=== PATIENT | female | born 1960 | race Caucasian/White ===

== ENCOUNTER 2022-07-04 08:34 | Outpatient (CLI) | payer BC, SELFPAY ==
--- OUTSIDE RECORDS SUMMARY | 2022-07-04 08:36 | XMS_ITS ---
:1960 Author Care Team Providers Name Role Phone Halima Mata Primary Care Provider Unavailable Allergies None recorded. Medications Name Status Start Date Stop Date ? ? alendronate 70 mg tablet Active ? Not gregory ilable bupropion HCl XL 300 mg 24 hr tablet, extended release Active ? Not available TAKE 1 TABLET BY MOUTH ONCE DAILY diclofenac sodium 75 mg tablet,delayed release Active ? Not available epinephrine 0.3 mg/0.3 mL injection, auto-injector Active ? Not available INJECT CONTENTS OF 1 PEN NEEDED FOR ALLERGIC REACTION INTRAM USCULARLY fluoxetine 20 mg capsule Active ? Not gregory ilable gabapentin 300 mg capsule Active ? Not av ailable glipizide ER 5 mg tablet, extended release 24 hr Active ? Not available lisinopril 10 mg tablet Active ? Not avai lable TAKE 1 TABLET BY MOUTH ONCE DAILY oxycodone-acetaminophen 5 mg-325 mg tablet Active ? Not available TAKE 0.5 TO 1 TABLET BY MOUTH EVERY 4 T O 6 HOURS NEEDED. DO NOT EXCEED 6 TABLET IN 24 HOURS sulfamethoxazole 800 mg-trimethoprim 160 mg tablet Active ? Not available TAKE 1 TABLET BY MOUTH TWICE DAILY FOR 7 DAYS Problems None recorded. Procedures None recorded. Results Lab Results None recorded. Past Encounters 02/11/2022 Cosmetic Surgery Halima Mata MD: [address], [facility], [place] [address], Ph. Social History None recorded. Vaccine List None recorded. Plan of Care Reminders Provider Appointments None recorded. ? ? Lab None recorded. ? ? Referral None recorded. ? ? Procedures None recorded. ? ? Surgeries None recorded. ? ? Imaging None recorded. ? ? Vitals None recorded.
[2022-07-04 13:16] LABS: Chloride* 102 mmol/L (96-114); Potassium* 4.6 mmol/L (3.6-5.1); Sodium* 136 mmol/L (135-149)
[2022-07-04 13:18] LABS: Creatinine* 0.9 mg/dL (0.5-1.5); Estimated Glomerular Filt Rate 72 ml/min
[2022-07-04 13:19] LABS: Blood Urea Nitrogen* 16 mg/dL (7-30); Calcium* 9.5 mg/dL (8.4-10.6); Carbon Dioxide* 24 mmol/L (20-32); Glucose* 250 mg/dL (60-115)
== END 2022-07-04 08:35 | disposition home or self-care (01) ==
LOC: FBOREF 08:34
PROVIDERS: PCP Family Medicine; Visit Provider Family Medicine
DX: I10 Essential (primary) hypertension (principal)
CPT/HCPCS: 80048

== ENCOUNTER 2023-01-02 08:53 | Outpatient (CLI) | payer BC, SELFPAY | END 2023-01-02 08:54 | disposition home or self-care (01) | LOC: NFLDREF 01-03 01:34 | PROVIDERS: PCP Family Medicine; Referring Provider Family Medicine; Visit Provider Family Medicine | DX: Z00.00 Encounter for general adult medical examination without abnormal findings (principal); E11.9 Type 2 diabetes mellitus without complications; I10 Essential (primary) hypertension; F41.9 Anxiety disorder, unspecified; Z13.6 Encounter for screening for cardiovascular disorders | CPT/HCPCS: 80048; 80061 ==

== ENCOUNTER 2023-04-14 08:48 | Outpatient (CLI) | payer BC, SELFPAY ==
--- NOTE | 2023-04-14 09:15 | CRLHL7_ITS ---
For Patients: As a result of the Century Cures Act, medical imaging exams and procedure reports are released immediately into your electronic medical record. You may view this report before your referring provider. If you have questions, please contact your health care provider. BILATERAL SCREENING MAMMOGRAM WITH COMPUTER-AIDED DETECTION AND TOMOSYNTHESIS TECHNIQUE: CC and MLO views were obtained. These mammographic images have been obtained using full-field digital technique. These mammographic images were interpreted with the benefit of computer-aided detection. Breast Tomosynthesis was used in this interpretation. COMPARISON FILM: 02/21/22, 11/24/20, 08/10/19. FINDINGS: There are scattered areas of fibroglandular density IMPRESSION: There is no radiographic evidence for malignancy. ASSESSMENT: BI-RADS Category 2: Benign RECOMMENDATION: Routine screening mammogram in 1 year. A lay language report of this examination will be provided to the patient. John Mendez M.D. Diagnostic Radiologist [email or web address] LEDA/Dictated by: John Mendez MD @ 04/14/2023 12:55:00 PM (Electronically Signed)
== END 2023-04-14 08:49 | disposition home or self-care (01) ==
LOC: MAMMO 08:49
PROVIDERS: PCP Family Medicine; Visit Provider Family Medicine
DX: Z12.31 Encounter for screening mammogram for malignant neoplasm of breast (principal)
CPT/HCPCS: 77063; 77067

== ENCOUNTER 2024-01-15 14:59 | Outpatient (CLI) | payer MEDICAID, SELFPAY ==
--- OUTSIDE RECORDS SUMMARY | 2024-02-05 11:44 | XMS_ITS | Data Portability ---
Author Name Unknown Address [address] [place] [address] Phone [phone] Organization [facility], Main Office Address [address] [place] [address] Assessment Encounter Date Assessment Date Assessment LastModified by Organization Details LastModified Time 02/11/2022 02/11/2022 1. Baldwin angiomas. Discussed etiology discussed scarring hyfrecation 2. Sebaceous gland hyperplasia. Anesthetized over 25 lesions light hyfrecation setting 1.6 maybe 2 passes maximum. Wound care instructions given $100 charge. Follow-up as needed [email or web address] Not available 02/11/2022 10:29:25 10/14/2022 10/14/2022 1. Sebaceous gland hyperplasia treated more than 30 lesions with light hyfrecation some with anesthesia. $100 charge [email or web address] Not available 10/14/2022 23:28:36 Plan of Treatment Reminders Order Date Submit Date Provider Last Modified By Organization Details Last Modified Time Details Appointments None record ed. Lab None record ed. Referral None record ed. Procedures None record ed. Surgeries None record ed. Imaging None record ed. Medication Orders None record ed. Patient TargetsNo targets recorded. Patient InstructionsNo instructions recorded. Reason for Referral None Reported. Medical Equipment None Reported. Medications Name Sig Start Date Stop Date Status Note LastModified by Organization Details LastModified Time fluoxetine 40 mg capsule TAKE 1 CAPSULE BY MOUTH TWICE DAILY active Not Available Not Available No t Available alendronate 70 mg tablet TAKE 1 TABLET BY MOUTH ONCE A WEEK active Not Available Not Available No t Available glipizide ER 5 mg tablet, extended release 24 hr TAKE 1 TABLET BY MOUTH ONCE DAILY active Not Available Not Available No t Available sulfamethoxa zole 800 mg-trimethop rim 160 mg tablet TAKE 1 TABLET BY MOUTH EVERY 12 HOURS FOR 3 DAYS active Not Available Not Available N ot Available oxycodone-ac etaminophen 5 mg-325 mg tablet TAKE 0.5 TO 1 TABLET BY MOUTH EVERY 4 TO 6 HOURS NEEDED. DO NOT EXCEED 6 TABLET IN 24 HOURS active Not Available Not Available No t Available lisinopril 10 mg tablet TAKE 1 TABLET BY MOUTH ONCE DAILY active Not Available Not Available No t Available gabapentin 300 mg capsule TAKE 1 CAPSULE BY MOUTH IN THE MORNING, 2 CAPSULES AT NOON AND 1 CAPSULE IN THE EVENING NEEDED FOR PAIN. active Not Available Not Available No t Available diclofenac sodium 75 mg tablet,delay ed release TAKE 1 TABLET BY MOUTH TWICE DAILY active Not Available Not Available No t Available epinephrine 0.3 mg/0.3 mL injection, auto-injecto r INJECT CONTENTS OF 1 PEN INTRAMUSCUL JUAN M NEEDED FOR ALLERGIC REACTION (MAY REPEAT ONCE) active Not Available Not Available No t Available fluoxetine 20 mg capsule TAKE 1 CAPSULE BY MOUTH ONCE DAILY active Not Available Not Available No t Available bupropion HCl XL 300 mg 24 hr tablet, extended release TAKE 1 TABLET BY MOUTH ONCE DAILY active Not Available Not Available No t Available Vitals None Recorded Social History None recorded. Functional Status None recorded. Mental Status None recorded. Family History Nothing Reported. Medical History No medical history recorded. Gynecological HistoryNo gynecological history recorded. Obstetrics History GPAL:G 0 P 0 0 0 0 Past Encounters Encounter ID Performer Location Encounter Start Date Encounter Closed Date Diagnosis/Indication Diagnosis SNOMED-CT Code [id number] Halima Mata MD Main Office [address] [address] 02/11/2022 09:06:40 02/11/2022 22:40:45 Cosmetic surgery [id number] Halima Mata MD Main Office [address] [address] 10/14/2022 15:53:54 10/19/2022 18:20:01 Cosmetic surgery [id number] Health Concerns Section Related Observation LastModified by Organization Detai ls LastModified Time None Recorded Concern Status LastModified by Organization Details LastModified Time None Recorded Advance Directives Directive None Recorded Payers Encounter Date Sequence Insurance Name Policy Number Policy Forte Covered Member ID Forte Member ID Guarantor Name 10/14/2022 1 *SELF PAY* Shyann gema Osvaldo Scottestad 02/11/2022 1 *SELF PAY* Shyann Riley Rama Notes Date Note Type Note Provider Name and Address Organization Details Recorded Time 02/11/2022 text/html HPI Notes: 61-year-old known to me from [place] presents for sebaceous hyperplasia and baldwin angiomas on the face. Treating these with cosmetic treatment hyfrecation. Has not had this done before Past medical history, family history, social history unchanged in the interim. Halima Mata MD [address],[facility] [address], [place], [address], [facility] 02/11/2022 22:40:39 10/14/2022 text/html HPI Notes: Returns for more sebaceous gland hyperplasia cautery. She had no side effects previously. Halima Mata MD [address] [place], [address], [facility] 10/19/2022 18:19:47 OBGyn Episode No OBEpisode recorded.
== END 2024-01-15 15:00 | disposition home or self-care (01) ==
LOC: NFLDREF 02-05 11:41
PROVIDERS: PCP Family Medicine; Referring Provider Family Medicine; Visit Provider Family Medicine
DX: E11.9 Type 2 diabetes mellitus without complications (principal); I10 Essential (primary) hypertension; Z13.220 Encounter for screening for lipoid disorders
CPT/HCPCS: 80048; 80061; 82043; 82570

== ENCOUNTER 2024-03-10 13:04 | Outpatient (CLI) | payer MEDICARE, SELFPAY ==
--- OUTSIDE RECORDS SUMMARY | 2024-03-10 13:10 | XMS_ITS | Data Portability ---
Author Organization [place] [facility], Main Office Address [address] [place] [address] Assessment Encounter Date Assessment Date Assessment LastModified [...] Encounter Closed Date Diagnosis/Indication Diagnosis SNOMED-CT Code [id number] Halima Mata MD Main Office [address] [facility] [place] [address] 02/11/2022 09:06:40 02/11/2022 22:40:45 Cosmetic surgery [id number] Halima Mata MD Main Office [address],[facility] [place] [place] [address] 10/14/2022 15:53:54 10/19/2022 18:20:01 Cosmetic surgery [id number] Health Concerns Section Related Observation LastModified by Organization Detai ls LastModified Time None Recorded Concern Status LastModified by Organization Details LastModified Time None Recorded Advance Directives Directive None Recorded Payers Encounter Date Sequence Insurance Name Policy Number Policy Forte Covered Member ID Forte Member ID Guarantor Name 10/14/2022 1 *SELF PAY* Shyann Ontiveros 02/11/2022 1 *SELF PAY* Shyann Riley Smesthang Notes Date Note Type Note Provider Name and Address Organization Details Recorded Time 02/11/2022 text/html HPI Notes: 61-year-old known to me from [place] presents for sebaceous hyperplasia and baldwin angiomas on the face. Treating these with cosmetic treatment hyfrecation. Has not had this done before Past medical history, family history, social history unchanged in the interim. Halima Mata MD [address],[facility] [place], [address], [facility] 02/11/2022 22:40:39 10/14/2022 text/html HPI Notes: Returns for more sebaceous gland hyperplasia cautery. She had no side effects previously. Halima Mata MD [address],[place], [address], [facility] 10/19/2022 18:19:47 OBGyn Episode No OBEpisode recorded.
--- NOTE | 2024-03-10 13:30 | CRLHL7_ITS ---
For Patients: As a result of the Century Cures Act, medical imaging exams and procedure reports are released immediately into your electronic medical record. You may view this report before your referring provider. If you have questions, please contact your health care provider. DXA BONE MINERAL DENSITY STUDY Reason for exam: Two year follow-up on Fosamax. Current height (in): 61. Weight (lb): 150. Menopause age: 30. Ethnicity: White. 1. Have you had a previous hip or vertebral fracture? No. 2. Have you had any fractures during your adult life which did not result from significant trauma (e.g., auto accident)? Yes. 3. Did either of your parents have a hip fracture? No. 4. Do you smoke? No. 5. Have you ever taken Glucocorticoids? No. 6. Do you have rheumatoid arthritis? No. 7. Do you have secondary osteoporosis? Yes. 8. Do you drink 3 or more alcoholic drinks per day? No. 9. Are you being treated for osteoporosis? Yes. 10. Have you ever taken any of the following medications: Actonel, Evista, Fosamax, Miacalcin, Reclast, Boniva, Forteo, HRT (i.e. estrogen/hormone therapy), Protelos, Prolia, Vitamin D, Calcium, other ??? please specify. ANSWER: Fosamax and Calcium. 11. Do you have any of the following medical conditions: Anorexia or bulimia, asthma or emphysema, end stage renal disease, hyperparathyroidism, any seizure disorders, cancer, inflammatory bowel diseases, hysterectomy, other ??? please specify. ANSWER: Yes, hysterectomy. 12. What was your maximum height (inches)? 63. 13. Do you perform weight bearing exercise regularly? No. 14. Do you regularly consume dairy products? Yes. 15. Do you drink caffeinated beverages? Yes. 16. At what age did your period start? 10. 17. Are you premenopausal? No. 18. How many full term pregnancies have you had? 0. 19. Have you ever missed your period for more than 6 months in a row (not including or menopause)? No. TECHNIQUE: Bone mineral density study was performed using the [employer]. FINDINGS: The results of the study expressed as bone mineral density (BMD) are as follows: Lumbar spine L1 to L3: BMD: 0.955 g/cm2. T-score: -0.6. Z-score: 1.2. Neck Left: BMD: 0.622 g/cm2. T-score: -2.0. Z-score: -0.5. Right: BMD: 0.616 g/cm2. T-score: -2.1. Z-score: -0.6. Total Left: BMD: 0.865 g/cm2. T-score: -0.6. Z-score: 0.6. Right: BMD: 0.829 g/cm2. T-score: -0.9. Z-score: 0.3. IMPRESSION: Osteopenia. *Comparison exams done prior to 02/2020 were performed on different unit, [email or web address]. COMPARISON: Compared with scan of 02/28/2022, the bone mineral density has increased by 0.7 percent at the spine and decreased by 7.0 percent at the hip. Compared with scan of 08/09/2019, the bone mineral density has increased by 3.7 percent at the spine and increased by 15.5 percent at the hip. John Mendez M.D. Diagnostic Radiologist [email or web address] SP/Dictated by: John Mendez MD @ 03/11/2024 10:53:00 AM (Electronically Signed)
== END 2024-03-10 13:05 | disposition home or self-care (01) ==
PROVIDERS: PCP Family Medicine; Visit Provider Family Medicine
DX: M81.0 Age-related osteoporosis without current pathological fracture (principal); M85.89 Other specified disorders of bone density and structure, multiple sites
CPT/HCPCS: 77080

== ENCOUNTER 2024-04-28 13:39 | Outpatient (CLI) | payer MEDICARE, SELFPAY ==
--- OUTSIDE RECORDS SUMMARY | 2024-04-28 13:42 | XMS_ITS | Data Portability ---
Author Organization [place] [facility], Main Office Address [address] [place] [address] Assessment Encounter Date Assessment Date Assessment LastModified [...] Encounter Closed Date Diagnosis/Indication Diagnosis SNOMED-CT Code [id number] Halima Mata MD Main Office [address] [facility] [place] [address] 02/11/2022 09:06:40 02/11/2022 22:40:45 Cosmetic surgery [id number] Halima Mata MD Main Office [address],[facility] [place] [address] 10/14/2022 15:53:54 10/19/2022 18:20:01 Cosmetic surgery [id number] Health Concerns Section Related Observation LastModified by Organization Detai ls LastModified Time None Recorded Concern Status LastModified by Organization Details LastModified Time None Recorded Advance Directives Directive None Recorded Payers Encounter Date Sequence Insurance Name Policy Number Policy Forte Covered Member ID Forte Member ID Guarantor Name 02/11/2022 1 *SELF PAY* Shyann Scottesthang 10/14/2022 1 *SELF PAY* Shyann Riley Smesthang Notes Date Note Type Note Provider Name and Address Organization Details Recorded Time 02/11/2022 text/html HPI Notes: 61-year-old known to me from [place] presents for sebaceous hyperplasia and baldwin angiomas on the face. Treating these with cosmetic treatment hyfrecation. Has not had this done before Past medical history, family history, social history unchanged in the interim. Halima Mata MD [address],[facility] [place], [address], [facility] 02/11/2022 22:40:39 10/14/2022 text/html HPI Notes: Returns for more sebaceous gland hyperplasia cautery. She had no side effects previously. Halima Mata MD [address], [address], [facility] 10/19/2022 18:19:47 OBGyn Episode No OBEpisode recorded.
--- NOTE | 2024-04-28 14:00 | CRLHL7_ITS ---
For Patients: As a result of the Century Cures Act, medical imaging exams and procedure reports are released immediately into your electronic medical record. You may view this report before your referring provider. If you have questions, please contact your health care provider. BILATERAL SCREENING MAMMOGRAM WITH COMPUTER-AIDED DETECTION AND TOMOSYNTHESIS TECHNIQUE: CC and MLO views were obtained. These mammographic images have been obtained using full-field digital technique. These mammographic images were interpreted with the benefit of computer-aided detection. Breast Tomosynthesis was used in this interpretation. COMPARISON FILM: 04/14/23, 02/21/22, 11/24/20. FINDINGS: There are scattered areas of fibroglandular density IMPRESSION: There is no radiographic evidence for malignancy. ASSESSMENT: BI-RADS Category 2: Benign RECOMMENDATION: Routine screening mammogram in 1 year. A lay language report of this examination will be provided to the patient. John Mendez M.D. Diagnostic Radiologist [email or web address] LEDA/Dictated by: John Mendez MD @ 04/29/2024 8:31:00 AM (Electronically Signed)
== END 2024-04-28 13:40 | disposition home or self-care (01) ==
PROVIDERS: PCP Family Medicine; Visit Provider Family Medicine
DX: Z12.31 Encounter for screening mammogram for malignant neoplasm of breast (principal)
CPT/HCPCS: 77063; 77067

== ENCOUNTER 2025-06-27 08:42 | Outpatient (CLI) | payer MEDICARE, SELFPAY | END 2025-06-27 08:43 | disposition home or self-care (01) | PROVIDERS: PCP Family Medicine; Visit Provider Family Medicine | DX: E11.9 Type 2 diabetes mellitus without complications (principal) | CPT/HCPCS: 80048; 80061; 85025 ==